=== PATIENT | female | born 1945 | race Asian ===

== ENCOUNTER 2020-09-01 18:50 | Inpatient (IN) | payer OTHER, MEDICARE ==
[2020-09-01] MEDS ORDERED: LACTATED RINGERS SOLUTION 1000 ML INFUS.BAG IV ONE (20:20)
[2020-09-01 21:07] LABS: BASO % 0.4 % (0-2.0); EOS % 0.6 % (0-4.5); HEMATOCRIT 39.2 % (32.4-45.2); HEMOGLOBIN 12.9 GM/dL (10.7-15.3); LYMPH % 28.3 % (8-40); MCH 28.8 pg (25.7-33.7); MCHC 32.8 g/dl (32.0-36.0); MEAN CELL VOLUME 87.6 fl (80-96); MEAN PLT VOLUME 8.1 fl (7.5-11.1); MONO % 13.6 % (3.8-10.2); NEUT % 57.1 % (42.8-82.8); PLATELET COUNT 223 K/MM3 (134-434); RBC 4.48 M/mm3 (3.60-5.2); RDW 13.9 % (11.6-15.6); WHITE BLOOD COUNT 5.6 K/mm3 (4.0-10.0)
[2020-09-01 21:12] LABS: CHLORIDE 102 mmol/L (98-107); POTASSIUM 4.1 mmol/L (3.5-5.1); SODIUM 133 mmol/L (136-145)
[2020-09-01 21:16] LABS: ANION GAP 8 MMOL/L (8-16); BLOOD UREA NITROGEN 21.4 mg/dL (7-18); CALCIUM 8.2 mg/dL (8.5-10.1); CO2 24 mmol/L (21-32); GLUCOSE,RANDOM 91 mg/dL (74-106)
[2020-09-01 21:17] LABS: ALBUMIN 3.6 g/dl (3.4-5.0)
[2020-09-01 21:19] LABS: SGPT/ALT 34 U/L (13-61)
[2020-09-01 21:20] LABS: CREATININE 1.5 mg/dL (0.55-1.3); SGOT/AST 32 U/L (15-37)
[2020-09-01 21:21] LABS: BILIRUBIN,TOTAL 0.4 mg/dL (0.2-1); TOT PROT 7.5 g/dl (6.4-8.2)
[2020-09-01 21:22] LABS: ALK PHOS 44 U/L (45-117)
[2020-09-01 21:54] LABS: LDH 235 U/L (84-246)
[2020-09-02 00:36] LABS: EPI CELLS 30 /uL (0-25.1); HYALINE CASTS 5 /uL (0-3.1); URINE APPEARANCE CLOUDY; URINE BACTERIA 102 /uL (0-1359); URINE BILIRUBIN NEGATIVE (NEGATIVE); URINE COLOR YELLOW; URINE GLUCOSE (UA) NEGATIVE (NEGATIVE); URINE KETONE TRACE (NEGATIVE); URINE LEUK ESTERASE TRACE (NEGATIVE); URINE NITRITE NEGATIVE (NEGATIVE); URINE PROTEIN TRACE (NEGATIVE); URINE RBC 14 /uL (0-23.9); URINE UROBILINOGEN 0.2 mg/dL (0.2-1.0); URINE WBC 21 /uL (0-25.8)
[2020-09-02] MEDS ORDERED: CEFTRIAXONE 1 GM in DEXTROSE 5%-WATER - 100 ML IVPB ONE (00:54)
[2020-09-02] MEDS ORDERED: DEXAMETHASONE SOD PHOSPHATE 4 MG/1 ML VIAL IVPUSH ONE (00:54)
[2020-09-02] MEDS ORDERED: DEXAMETHASONE SOD PHOSPHATE 10 MG/1 ML VIAL ONE (02:13)
[2020-09-02] MEDS ORDERED: CEFTRIAXONE 1 GM/50 ML BAG ONE (02:13)
[2020-09-02] MEDS ORDERED: SODIUM CHLORIDE 1,000 ML IV SCH (02:45)
[2020-09-02] MEDS ORDERED: HEPARIN NA (PORCINE) 5,000 UNITS/ML 1ML VIAL ONE ×4 (06:07→22:57)
[2020-09-02] MEDS: HEPARIN NA (PORCINE) 5,000 UNITS/ML 1ML VIAL SQ SCH ×3 (06:11→23:01)
[2020-09-02 08:34] LABS: POTASSIUM 4.1 mmol/L (3.5-5.1)
[2020-09-02 08:36] LABS: CALCIUM 7.7 mg/dL (8.5-10.1)
[2020-09-02 08:37] LABS: BLOOD UREA NITROGEN 23.8 mg/dL (7-18); MAGNESIUM 1.9 mg/dL (1.8-2.4)
[2020-09-02 08:40] LABS: CREATININE 1.4 mg/dL (0.55-1.3); PHOSPHOROUS 4.6 mg/dL (2.5-4.9)
[2020-09-02 08:41] LABS: BILIRUBIN,TOTAL 0.3 mg/dL (0.2-1); TOT PROT 6.5 g/dl (6.4-8.2)
[2020-09-02 09:15] LABS: BASO % 0.4 % (0-2.0); EOS % 0.1 % (0-4.5); HEMATOCRIT 39.6 % (32.4-45.2); HEMOGLOBIN 13.3 GM/dL (10.7-15.3); LYMPH % 27.8 % (8-40); MCH 29.1 pg (25.7-33.7); MCHC 33.5 g/dl (32.0-36.0); MEAN PLT VOLUME 7.7 fl (7.5-11.1); MONO % 4.6 % (3.8-10.2); NEUT % 67.1 % (42.8-82.8); PLATELET COUNT 216 K/MM3 (134-434); RBC 4.55 M/mm3 (3.60-5.2); RDW 13.9 % (11.6-15.6); WHITE BLOOD COUNT 4.5 K/mm3 (4.0-10.0)
[2020-09-02] MEDS ORDERED: CHOLECALCIFEROL (VIT D3) 1,000 UNIT (25 MCG) TABLET ONE (10:56)
[2020-09-02] MEDS ORDERED: ZINC SULFATE 220 MG CAPSULE (FP) ONE (10:56)
[2020-09-02] MEDS ORDERED: ASCORBIC ACID 500 MG TABLET (FP) ONE ×2 (10:56→22:57)
[2020-09-02] MEDS: ASCORBIC ACID 500 MG TABLET (FP) PO SCH ×2 (11:00→23:01)
[2020-09-02] MEDS: CHOLECALCIFEROL (VIT D3) 1,000 UNIT (25 MCG) TABLET PO SCH (11:00)
[2020-09-02] MEDS: ZINC SULFATE 220 MG CAPSULE (FP) PO SCH (11:00)
[2020-09-02] MEDS: LACTATED RINGERS SOLUTION 1,000 ML/1,000 ML INFUS.BAG IV SCH (11:21)
[2020-09-02] MEDS ORDERED: FLU VACCINE (FLULAVAL) PF 60 MCG/0.5 ML SYRINGE 2020-2021 IM ONE (17:04)
[2020-09-02] MEDS ORDERED: ASPIRIN 81 MG CHEWABLE TABLETS ONE (18:34)
[2020-09-02] MEDS ORDERED: LOSARTAN POTASSIUM 50 MG TABLET ONE ×2 (18:34→19:21)
[2020-09-02] MEDS ORDERED: DONEPEZIL HCL 5 MG TABLET (FP) ONE (18:35)
[2020-09-02] MEDS: LOSARTAN POTASSIUM 25 MG TABLET PO SCH (19:24)
[2020-09-02] MEDS: ASPIRIN 81 MG CHEWABLE TABLETS PO SCH (19:24)
[2020-09-02] MEDS: DONEPEZIL HCL 10 MG TABLET (FP) PO SCH (19:24)
[2020-09-03] MEDS: ROSUVASTATIN CA 20 MG TABLET (FP) PO SCH ×2 (00:11→21:42)
[2020-09-03 00:43] VITALS: BMI 24.8
[2020-09-03] MEDS ORDERED: FLU VACCINE (FLULAVAL) PF 60 MCG/0.5 ML SYRINGE 2020-2021 IM ONE (01:01)
[2020-09-03] MEDS: HEPARIN NA (PORCINE) 5,000 UNITS/ML 1ML VIAL SQ SCH ×3 (06:30→21:42)
[2020-09-03 08:00] LABS: HEMATOCRIT 33.4 % (32.4-45.2); HEMOGLOBIN 11.3 GM/dL (10.7-15.3); MCH 29.1 pg (25.7-33.7); MCHC 33.8 g/dl (32.0-36.0); MEAN CELL VOLUME 86.1 fl (80-96); MEAN PLT VOLUME 7.6 fl (7.5-11.1); PLATELET COUNT 205 K/MM3 (134-434); RBC 3.88 M/mm3 (3.60-5.2); RDW 13.6 % (11.6-15.6); WHITE BLOOD COUNT 7.1 K/mm3 (4.0-10.0)
[2020-09-03 08:25] LABS: POTASSIUM 3.4 mmol/L (3.5-5.1)
[2020-09-03 08:26] LABS: BLOOD UREA NITROGEN 22.1 mg/dL (7-18)
[2020-09-03] MEDS: CHOLECALCIFEROL (VIT D3) 1,000 UNIT (25 MCG) TABLET PO SCH (09:31)
[2020-09-03] MEDS: DONEPEZIL HCL 10 MG TABLET (FP) PO SCH (09:31)
[2020-09-03] MEDS: ASCORBIC ACID 500 MG TABLET (FP) PO SCH ×2 (09:31→21:42)
[2020-09-03] MEDS: ZINC SULFATE 220 MG CAPSULE (FP) PO SCH (09:31)
[2020-09-03] MEDS: LOSARTAN POTASSIUM 25 MG TABLET PO SCH (09:31)
[2020-09-03] MEDS: ASPIRIN 81 MG CHEWABLE TABLETS PO SCH (09:31)
[2020-09-03] MEDS ORDERED: POTASSIUM CHLORIDE TABS 20 MEQ TABLET.ER (FP) PO ONE (12:15)
[2020-09-03] MEDS: LACTATED RINGERS SOLUTION 1,000 ML/1,000 ML INFUS.BAG IV SCH (12:32)
[2020-09-03 12:37] LABS: MAGNESIUM 1.7 mg/dL (1.8-2.4)
[2020-09-04] MEDS: HEPARIN NA (PORCINE) 5,000 UNITS/ML 1ML VIAL SQ SCH ×3 (06:00→21:08)
[2020-09-04 07:38] LABS: HEMATOCRIT 34.2 % (32.4-45.2); HEMOGLOBIN 11.4 GM/dL (10.7-15.3); MCH 29.1 pg (25.7-33.7); MCHC 33.4 g/dl (32.0-36.0); MEAN CELL VOLUME 87.1 fl (80-96); MEAN PLT VOLUME 7.7 fl (7.5-11.1); PLATELET COUNT 203 K/MM3 (134-434); RBC 3.93 M/mm3 (3.60-5.2); RDW 13.8 % (11.6-15.6); WHITE BLOOD COUNT 4.5 K/mm3 (4.0-10.0)
[2020-09-04 08:18] LABS: POTASSIUM 3.8 mmol/L (3.5-5.1)
[2020-09-04 08:49] LABS: BLOOD UREA NITROGEN 16.7 mg/dL (7-18); CALCIUM 7.7 mg/dL (8.5-10.1); CREATININE 0.8 mg/dL (0.55-1.3); MAGNESIUM 1.9 mg/dL (1.8-2.4)
[2020-09-04] MEDS: CHOLECALCIFEROL (VIT D3) 1,000 UNIT (25 MCG) TABLET PO SCH (09:44)
[2020-09-04] MEDS: ASPIRIN 81 MG CHEWABLE TABLETS PO SCH (09:44)
[2020-09-04] MEDS: DONEPEZIL HCL 10 MG TABLET (FP) PO SCH (09:44)
[2020-09-04] MEDS: ZINC SULFATE 220 MG CAPSULE (FP) PO SCH (09:44)
[2020-09-04] MEDS: ASCORBIC ACID 500 MG TABLET (FP) PO SCH ×2 (09:44→21:08)
[2020-09-04] MEDS: LOSARTAN POTASSIUM 25 MG TABLET PO SCH (09:45)
[2020-09-04] MEDS: LACTATED RINGERS SOLUTION 1,000 ML/1,000 ML INFUS.BAG IV SCH (15:10)
[2020-09-04] MEDS: ROSUVASTATIN CA 20 MG TABLET (FP) PO SCH (21:08)
[2020-09-05] MEDS: HEPARIN NA (PORCINE) 5,000 UNITS/ML 1ML VIAL SQ SCH (05:44)
[2020-09-05 10:02] LABS: HEMATOCRIT 36.8 % (32.4-45.2); HEMOGLOBIN 12.3 GM/dL (10.7-15.3); MCH 28.8 pg (25.7-33.7); MCHC 33.3 g/dl (32.0-36.0); MEAN CELL VOLUME 86.4 fl (80-96); MEAN PLT VOLUME 7.7 fl (7.5-11.1); PLATELET COUNT 253 K/MM3 (134-434); RBC 4.25 M/mm3 (3.60-5.2); RDW 13.5 % (11.6-15.6); WHITE BLOOD COUNT 5.5 K/mm3 (4.0-10.0)
[2020-09-05] MEDS: CHOLECALCIFEROL (VIT D3) 1,000 UNIT (25 MCG) TABLET PO SCH (10:21)
[2020-09-05] MEDS: DONEPEZIL HCL 10 MG TABLET (FP) PO SCH (10:21)
[2020-09-05] MEDS: ZINC SULFATE 220 MG CAPSULE (FP) PO SCH (10:21)
[2020-09-05] MEDS: ASPIRIN 81 MG CHEWABLE TABLETS PO SCH (10:22)
[2020-09-05] MEDS: ASCORBIC ACID 500 MG TABLET (FP) PO SCH (10:22)
[2020-09-05] MEDS: LOSARTAN POTASSIUM 25 MG TABLET PO SCH (10:22)
[2020-09-05 10:57] LABS: ALBUMIN 3.4 g/dl (3.4-5.0); CALCIUM 8.5 mg/dL (8.5-10.1)
[2020-09-05 10:58] LABS: BLOOD UREA NITROGEN 16.9 mg/dL (7-18); MAGNESIUM 1.9 mg/dL (1.8-2.4)
[2020-09-05 11:00] LABS: CREATININE 0.8 mg/dL (0.55-1.3); PHOSPHOROUS 2.7 mg/dL (2.5-4.9)
[2020-09-05 11:02] LABS: BILIRUBIN,TOTAL 0.6 mg/dL (0.2-1); TOT PROT 7.1 g/dl (6.4-8.2)
[2020-09-05 11:12] LABS: POTASSIUM 3.6 mmol/L (3.5-5.1)
[2020-09-05] MEDS ORDERED: CHOLECALCIFEROL (VIT D3) 1,000 UNIT (25 MCG) TABLET PO SCH (13:19)
[2020-09-05 16:38] VITALS: BP 139/72; PULSE 83; TEMP 98.1
== END 2020-09-05 15:35 | disposition home or self-care (01) | DRG 177 ==
LOC: JER 18:50 → JERBED 09-02 00:52 → J7W 09-02 23:29
PROVIDERS: ADMIT Hospitalist; ATTEND Internal Medicine
DX: U07.1 COVID-19 (principal); G93.41 Metabolic encephalopathy; J12.82 Pneumonia due to coronavirus disease 2019; N39.0 Urinary tract infection, site not specified; N17.9 Acute kidney failure, unspecified; I10 Essential (primary) hypertension; G30.9 Alzheimer's disease, unspecified; F02.80 Dementia in other diseases classified elsewhere, unspecified severity, without behavioral disturbance, psychotic disturbance, mood disturbance, and anxiety; E78.5 Hyperlipidemia, unspecified; E86.0 Dehydration
CPT/HCPCS: 36415; 71045-TC-FY; 80048; 80053; 81003; 82550; 82565; 82728; 83615; 83735; 84100; 84300; 84436; 84443; 84484; 85025; 85027; 85379; 86140; 87040; 87086; 87804; 99285-25; C9803; G0008; J1644; Q2036; U0003